=== PATIENT | female | born 1985 ===

== ENCOUNTER 2024-05-20 07:14 | Inpatient (IN) | payer OTHER ==
[~2024-05-20] VITALS: Ht 160 cm; Wt 3.2 kg
[2024-05-20 07:42] VITALS: BP 109/72
[2024-05-20] MEDS ORDERED: AMPICILLIN SODIUM 2,000 MG VIAL ONE (08:10)
[2024-05-20] MEDS ORDERED: RINGERS SOLUTION,LACTATED 1,000 ML IV SCH ×2 (08:45→20:00)
[2024-05-20] MEDS ORDERED: AMPICILLIN SODIUM 2,000 MG VIAL IV ONE (08:45)
[2024-05-20 08:56] LABS: HEMOGLOBIN 13.4 g/dL (12.0-15.00); MEAN CELL VOLUME 88.9 fL (80.00-100.00); MEAN CORPUSCULAR HEMOGLOBIN 30.4 pg (27.00-32.0); MEAN CORPUSCULAR HGB CONC 34.3 g/dl (32.0-36.0); PLATELET COUNT 187 K/uL (150-450); RED BLOOD COUNT 4.39 M/uL (4.00-6.00); RED CELL DISTRIBUTION WIDTH 14.9 % (11.5-14.5)
[2024-05-20 08:57] LABS: URINE APPEARANCE Clear; URINE BILIRRUBIN Negative (NEGATIVE); URINE BLOOD NHT; URINE COLOR Yellow; URINE GLUCOSE Negative (NEGATIVE); URINE KETONE Negative (NEGATIVE); URINE LEUKOCYTE Negative; URINE NITRATE Negative; URINE PROTEIN Negative (NEGATIVE); URINE UROBILINOGEN 0.2 E.U./dl
[2024-05-20 09:02] LABS: URINE BACTERIA 411.2 uL (0.0-1933); URINE EPITHELIAL CELLS 10.6 uL (0.0-38.8); URINE RBC 22.9 uL (0.0-20.8); URINE WBC 16.3 uL (0.0-23.2)
[2024-05-20] MEDS ORDERED: PRENATAL + DHA1 EAC1 PO (09:04)
[2024-05-20 09:26] LABS: INR 0.95; PARTIAL THROMBOPLASTIN TIME 24.1 SECONDS (22.0-34.0); PROTHROMBIN TIME 10.4 SECONDS (9.0-11.5)
[2024-05-20 11:38] VITALS: BP 115/77; O2SAT 99
[2024-05-20] MEDS ORDERED: AMPICILLIN SODIUM 1,000 MG VIAL IV SCH (12:00)
[2024-05-20 15:35] VITALS: BP 120/78
[2024-05-20] MEDS ORDERED: ERYTHROMYCIN BASE OPHT 1GM EACH TUBE OP ONE (16:44)
[2024-05-20] MEDS ORDERED: OXYTOCIN 10 UNITS/ML VIAL ONE (16:44)
[2024-05-20] MEDS ORDERED: KETOROLAC TROMETHAMINE 60 MG VIAL IM STA (19:46)
[2024-05-20] MEDS ORDERED: MEPERIDINE HCL/PF 50 MG/ML VIAL IM PRN (20:00)
[2024-05-20] MEDS ORDERED: PROMETHAZINE HCL 25 MG/ML AMPUL IM PRN (20:00)
[2024-05-20] MEDS ORDERED: CHLORHEXIDINE GLUCONATE 120 ML BOTTLE TOP ONE (20:00)
[2024-05-20] MEDS ORDERED: OXYTOCIN 1,000 ML IV SCH (20:00)
[2024-05-20] MEDS ORDERED: MORPHINE SULFATE 4 MG/ML VIAL IV ONE ×2 (20:10→21:05)
[2024-05-20] MEDS ORDERED: KETOROLAC TROMETHAMINE 60 MG VIAL IM ONE (21:34)
[2024-05-20] MEDS ORDERED: AMPICILLIN SODIUM 1,000 MG VIAL ONE (21:48)
[2024-05-20 22:35] VITALS: BP 127/75
[2024-05-20 23:21] LABS: HEMATOCRIT 33.9 % (36.0-45.00); HEMOGLOBIN 11.7 g/dL (12.0-15.00); MEAN CELL VOLUME 88.4 fL (80.00-100.00); MEAN CORPUSCULAR HEMOGLOBIN 30.6 pg (27.00-32.0); MEAN CORPUSCULAR HGB CONC 34.6 g/dl (32.0-36.0); PLATELET COUNT 178 K/uL (150-450); RED BLOOD COUNT 3.83 M/uL (4.00-6.00); RED CELL DISTRIBUTION WIDTH 14.9 % (11.5-14.5)
[2024-05-21] VITALS: BP 133/80
[2024-05-21 08:33] VITALS: BP 137/72
[2024-05-21] MEDS ORDERED: OxyCODONE HCL/APAP UD (PERCOCET) PO PRN (09:00)
[2024-05-21 16:49] VITALS: BP 119/78
[2024-05-22 01:00] VITALS: BP 129/85
[2024-05-22 08:02] VITALS: BP 118/74
[2024-05-22 15:18] VITALS: BP 117/74
[2024-05-23 00:32] VITALS: BP 120/77
[2024-05-23 08:00] VITALS: BP 130/86
== END 2024-05-23 15:24 | disposition home or self-care (01) | DRG 785 ==
LOC: LDR 07:14 → O/R 18:22 → OB/GYN 20:20
PROVIDERS: ADMIT Obstetrics & Gynecology; ATTEND Obstetrics & Gynecology
PROC: 0UB70ZZ Excision of Bilateral Fallopian Tubes, Open Approach (ICD-10-PCS; 2024-05-20)
PROC: 4A1HXCZ Monitoring of Products of Conception, Cardiac Rate, External Approach (ICD-10-PCS; 2024-05-20)
PROC: 10D00Z1 Extraction of Products of Conception, Low, Open Approach (ICD-10-PCS; principal; 2024-05-20 19:30)
DX: O34.211 Maternal care for low transverse scar from previous cesarean delivery (principal); Z30.2 Encounter for sterilization; Z3A.38 38 weeks gestation of pregnancy; Z37.0 Single live birth